=== PATIENT | female | born 1955 | race Two or more races ===

== ENCOUNTER 2019-03-20 12:28 | Outpatient (CLI) | payer OTHER ==
[~2019-03-20 12:28] MED LIST: CELEBREX200MG PO; METHOCARBAMOL500 MG PO
== END 2019-03-20 14:48 | disposition home or self-care (01) ==
LOC: RAD 12:28
DX: M54.2 Cervicalgia (principal)

== ENCOUNTER 2019-06-12 10:09 | Outpatient (CLI) | payer OTHER | END 2019-06-12 10:20 | disposition home or self-care (01) | LOC: RAD 10:09 | DX: M17.11 Unilateral primary osteoarthritis, right knee (principal) ==

== ENCOUNTER 2020-06-17 09:58 | Outpatient (CLI) | payer OTHER | END 2020-06-17 10:14 | disposition home or self-care (01) | LOC: RAD 09:58 | PROVIDERS: ATTEND Internal Medicine Rheumatology | DX: M54.6 Pain in thoracic spine (principal); M81.0 Age-related osteoporosis without current pathological fracture; M54.5 Low back pain; M15.8 Other polyosteoarthritis ==

== ENCOUNTER 2020-08-06 14:47 | Outpatient (CLI) | payer OTHER | END 2020-08-06 14:58 | disposition home or self-care (01) | LOC: MAMO-SONO 14:47 | PROVIDERS: ATTEND Obstetrics & Gynecology Gynecology | DX: R10.2 Pelvic and perineal pain (principal); N60.11 Diffuse cystic mastopathy of right breast; N60.12 Diffuse cystic mastopathy of left breast ==

== ENCOUNTER 2020-09-08 07:10 | Outpatient (CLI) | payer OTHER | END 2020-09-08 08:03 | disposition home or self-care (01) | LOC: NUCLEAR 07:10 | PROVIDERS: ATTEND Physical Medicine & Rehabilitation | DX: M13.0 Polyarthritis, unspecified (principal) | CPT/HCPCS: 78315; A9503 ==

== ENCOUNTER 2020-11-11 10:13 | Outpatient (CLI) | payer OTHER | END 2020-11-11 10:28 | disposition home or self-care (01) | LOC: RAD 10:13 | PROVIDERS: ATTEND Physical Medicine & Rehabilitation | DX: M17.11 Unilateral primary osteoarthritis, right knee (principal) ==

== ENCOUNTER 2021-05-14 14:27 | Outpatient (CLI) | payer OTHER | END 2021-05-14 14:32 | disposition home or self-care (01) | LOC: SONOGRAMA 14:27 → MAMO-SONO 14:45 | PROVIDERS: ATTEND Internal Medicine Endocrinology, Diabetes & Metabolism | DX: N20.0 Calculus of kidney (principal); N20.2 Calculus of kidney with calculus of ureter ==

== ENCOUNTER 2023-04-01 13:54 | Outpatient (CLI) | payer OTHER | END 2023-04-01 14:14 | disposition home or self-care (01) | LOC: SONOGRAMA 13:54 | PROVIDERS: ATTEND Internal Medicine Endocrinology, Diabetes & Metabolism | DX: C73 Malignant neoplasm of thyroid gland (principal) ==

== ENCOUNTER 2023-04-28 07:47 | Outpatient (CLI) | payer OTHER | END 2023-04-28 07:49 | disposition home or self-care (01) | LOC: SONOGRAMA 07:47 | PROVIDERS: ATTEND Pathology Anatomic Pathology & Clinical Pathology | DX: R59.9 Enlarged lymph nodes, unspecified (principal) ==

== ENCOUNTER 2023-06-23 10:00 | Outpatient (CLI) | payer OTHER | END 2023-06-23 10:01 | disposition home or self-care (01) | LOC: LAB 10:00 | PROVIDERS: ATTEND Internal Medicine Pulmonary Disease | DX: J31.0 Chronic rhinitis (principal); J45.909 Unspecified asthma, uncomplicated ==

== ENCOUNTER 2023-06-23 11:09 | Outpatient (CLI) | payer OTHER | END 2023-06-23 11:18 | disposition home or self-care (01) | LOC: RAD 11:09 | PROVIDERS: ATTEND Internal Medicine Pulmonary Disease | DX: J45.909 Unspecified asthma, uncomplicated (principal); U09.9 Post COVID-19 condition, unspecified; J31.0 Chronic rhinitis; J32.0 Chronic maxillary sinusitis ==

== ENCOUNTER 2023-07-01 12:28 | Outpatient (CLI) | payer OTHER | END 2023-07-01 12:39 | disposition home or self-care (01) | LOC: MRI 12:28 | PROVIDERS: ATTEND General Practice | DX: M79.672 Pain in left foot (principal); M25.572 Pain in left ankle and joints of left foot; Z71.2 Person consulting for explanation of examination or test findings | CPT/HCPCS: 73718 ==

== ENCOUNTER 2023-10-12 07:30 | Outpatient (CLI) | payer OTHER | END 2023-10-12 07:40 | disposition home or self-care (01) | LOC: RAD 07:30 | PROVIDERS: ATTEND General Practice | DX: M79.642 Pain in left hand (principal); S62.135A Nondisplaced fracture of capitate [os magnum] bone, left wrist, initial encounter for closed fracture; M25.542 Pain in joints of left hand; T79.8XXD Other early complications of trauma, subsequent encounter ==

== ENCOUNTER 2023-11-01 14:43 | Outpatient (CLI) | payer OTHER | END 2023-11-01 14:55 | disposition home or self-care (01) | LOC: RAD 14:43 | PROVIDERS: ATTEND Physical Medicine & Rehabilitation | DX: M54.6 Pain in thoracic spine (principal); M54.50 Low back pain, unspecified ==

== ENCOUNTER 2024-07-05 07:32 | Outpatient (CLI) | payer OTHER | END 2024-07-05 07:39 | disposition home or self-care (01) | LOC: RAD 07:32 | PROVIDERS: ATTEND Internal Medicine Pulmonary Disease | DX: J45.909 Unspecified asthma, uncomplicated (principal); J31.0 Chronic rhinitis ==

== ENCOUNTER 2024-08-08 10:55 | Outpatient (CLI) | payer OTHER | END 2024-08-08 11:04 | disposition home or self-care (01) | LOC: RAD 10:55 | PROVIDERS: ATTEND General Practice | DX: M25.511 Pain in right shoulder (principal); M19.011 Primary osteoarthritis, right shoulder ==

== ENCOUNTER 2024-08-10 09:33 | Outpatient (CLI) | payer OTHER | END 2024-08-10 09:43 | disposition home or self-care (01) | LOC: RAD 09:33 | PROVIDERS: ATTEND Orthopaedic Surgery Sports Medicine | DX: M75.51 Bursitis of right shoulder (principal) ==

== ENCOUNTER 2024-12-26 07:40 | Outpatient (CLI) | payer OTHER | END 2024-12-26 07:43 | disposition home or self-care (01) | LOC: RAD 07:40 | PROVIDERS: ATTEND Specialist | DX: M54.50 Low back pain, unspecified (principal); M25.562 Pain in left knee ==

== ENCOUNTER 2025-03-08 09:24 | Outpatient (CLI) | payer OTHER | END 2025-03-08 09:37 | disposition home or self-care (01) | LOC: SONOGRAMA 09:24 | PROVIDERS: ATTEND General Practice | DX: R35.0 Frequency of micturition (principal); R30.0 Dysuria; N39.0 Urinary tract infection, site not specified ==

== ENCOUNTER 2025-03-15 09:33 | Outpatient (CLI) | payer OTHER | END 2025-03-15 09:36 | disposition home or self-care (01) | LOC: SONOGRAMA 09:33 | PROVIDERS: ATTEND General Practice | DX: R10.9 Unspecified abdominal pain (principal); R10.30 Lower abdominal pain, unspecified; R10.2 Pelvic and perineal pain; R11.0 Nausea ==